=== PATIENT | female | born 1950 | race African-American/Black ===

== ENCOUNTER → 2016-10-12 | Day surgery (SDC) | payer OTHER ==
[~2016-10-12] MED LIST: ACETAMINOPHEN PO; ACETAMINOPHEN650 M1 PO; ACID CONTROL20 MG PO; ADVAIR 250-501 EAC1 IH; ALBUTEROL20 ml INH; ALEVE220 M1 PO; AMLODIPINE BESYL5 MG PO; ASPIRIN81 M2 PO; ASPIRIN81 MG PO; BAYER ASPIRIN325 M1 PO; CELEXA PO; CLARITIN10 M2 PO; CLARITIN10 M3 DOB; CLARITIN10 M3 PO; CLOPIDOGREL75 MG PO; CRESTOR PO; DIFLUCAN100 MG PO; GLUCOPHAGE500 M1 PO; HUMULIN 70/30 PE3 ML; HYDROCHLOROTHIA25 MG PO; HYDROCODON-ACE1 EAC7 PO; IMDUR-ER30 M1 PO; INVOKANA100 MG PO; LANTUS100 U/ML SQ; LEVEMIR SUBQ; LEVEMIR100 UNITS/ SQ; LIPITOR40 MG PO; LISINOPRIL-HCTZ1 T15 PO; LISINOPRIL20 MG PO; LOPRESSOR PO; MEDROL DOSEPAK4 MG PO; METFORMIN HCL500 M1 PO; METFORMIN HCL500 M2 PO; METFORMIN PO; METOPROLOL TAR25 MG PO; NITROGLYCERIN0.3 MG SL; NITROGLYGERIN0.4 MG SL; NORVASC PO; NOVOLOG100 U/ML SQ; NOVOLOG100 U/ML SUBQ; OMEPRAZOLE40 M1 PO; PEPCID AC20 M2 PO; PLAVIX PO; PROAIR RESPICL90 MCG INH; RANITIDINE HCL150 M1 PO; RANITIDINE HCL300 M1 PO; RANITIDINE HCL300 MG PO; SERTRALINE HCL100 MG PO; SIMVASTATIN40 MG PO; SIMVASTATIN80 MG PO; SYMBICORT INH; TOPROL XL PO; TOPROL XL50 MG PO; TRIGLIDE160 M1 PO; VICTOZA0.6 MG/0.1 SUBQ; ZANTAC PO; ZESTORETIC 20/21 TAB PO; ZOCOR PO; ZOLOFT50 MG PO
--- NOTE | ~2016-10-12 | OR ---
Unit #: [id number] #: [id number] Patient: ARTHUR BLACK [id number] [address] [place], [place] [address] [id number] O MR#: [id number] NAME: ARTHUR BLACK ROOM: Date of Procedure: 10/12/2016 Admission Date: 10/12/2016 Surgeon: Adrian Schofield M.D. : 1950 Attending Physician: Adrian Schofield M.D. Primary Care Physician: Laila Bauer M.D. OPERATIVE REPORT PREOPERATIVE DIAGNOSES 1. Reflux symptoms resistant to medications. 2. Change in bowel habits. POSTOPERATIVE DIAGNOSES 1. Reflux symptoms resistant to medications. 2. Change in bowel habits. PROCEDURES PERFORMED 1. Esophagogastroduodenoscopy. 2. Biopsy of the antrum for Helicobacter pylori testing. 3. Colonoscopy to cecum; polypectomy with electrocautery snare x2 in cecum, and x1 at 25 cm; polypectomy with cold biopsy forceps of proximal ascending colon, descending colon (65 cm), and sigmoid colon (35 cm). ANESTHESIA Monitored anesthesia care. FINDINGS The patient was found on upper endoscopy to have a medium hiatal hernia and mild distal gastritis. On colonoscopy, the patient was found to have two small cecal polyps. A small polyp in the proximal ascending colon, the descending colon at 65 cm, sigmoid colon 35 and sigmoid colon at 25 cm, and mild internal hemorrhoids. SPECIMENS Sent to Pathology. COMPLICATIONS None apparent. CONDITION The patient tolerated the procedure well. INDICATIONS FOR PROCEDURE The patient is a 66-year-old black female, who presents at this time with reflux symptoms resistant to medications as well as a change in bowel habits with increasing constipation. DESCRIPTION OF PROCEDURE After obtaining informed consent, the patient was brought to the endoscopy suite and after adequate monitored anesthesia care, had the endoscope Unit #: [id number] #: [id number] Patient: ARTHUR BLACK placed through the mouth into the upper esophagus under direct vision. The scope was advanced slowly with the lumen always in view to the level of the second and third portion of the duodenum. The second and third portion of the duodenum were normal as was the duodenal bulb. The pylorus opened normally. There was some mild distal gastritis present and a biopsy was obtained for Helicobacter pylori testing. On retroflexion back to the GE junction, the patient was found to have a medium-sized hiatal hernia. No other abnormalities were found in the proximal third, middle third, or incisura. On pulling back above the GE junction, there was no stenosis, stricture, or neoplasm seen. There was no significant esophagitis. The remaining portion of the esophagus was within normal limits. Laryngeal structures were grossly normal as viewed from above. At this point in time, the colonoscope was placed through the anus and slowly advanced to the level of the cecum without difficulty with the lumen always in view. There were two small polyps present within the apex of the cecum. Other than this, there was no other abnormalities and the ileocecal valve was normal. The two small polyps were excised with electrocautery snare with good hemostasis, retrieved with a mucus trap, and sent to Pathology. In the proximal ascending colon, a small 3 to 4 mm polyp was present. It was excised completely with the cold biopsy forceps with good hemostasis and sent to Pathology. The remaining portion of the ascending colon was normal as was the hepatic flexure, transverse colon, and splenic flexure. At 65 cm, a small polyp was found and it was excised completely with electrocautery snare with good hemostasis. Another was found at 35 cm. No diverticula were seen. At 25 cm, there was a 7 to 8 mm polyp which was excised completely with electrocautery snare with good hemostasis, retrieved with a mucus trap, and sent to Pathology. The remaining portion of the rectosigmoid and rectum were all within normal limits. On retroflexing in the rectum to the anorectal junction, the patient was found to have some mild internal hemorrhoids. The scope was removed without difficulty. The patient went from the endoscopy suite to recovery area in stable condition. RECOMMENDATIONS Gastroesophageal reflux sheet given. High-fiber diet, lots of liquids, tucks or wipes p.r.n. Call Wednesday for pathology. Prescription for omeprazole given. Dictated by... Arline Gil/emy TD: 10/12/2016 13:32 JOB #: [id number] Charles Kemp M.D. [facility] Unit #: [id number] #: [id number] Patient: ARTHUR BLACK OPERATIVE REPORT Page 1 of 1 X Adrian Schofield MD PROCEDURE OPERATIVE NOTE
== END | disposition home or self-care (01) ==
LOC: COPS 10:12
DX: D12.0 Benign neoplasm of cecum (principal); D12.2 Benign neoplasm of ascending colon; D12.4 Benign neoplasm of descending colon; D12.6 Benign neoplasm of colon, unspecified; K21.9 Gastro-esophageal reflux disease without esophagitis; K44.9 Diaphragmatic hernia without obstruction or gangrene; K29.70 Gastritis, unspecified, without bleeding; K64.8 Other hemorrhoids; J45.909 Unspecified asthma, uncomplicated; J44.9 Chronic obstructive pulmonary disease, unspecified; M19.90 Unspecified osteoarthritis, unspecified site; I10 Essential (primary) hypertension; E11.9 Type 2 diabetes mellitus without complications; Z98.890 Other specified postprocedural states; Z95.5 Presence of coronary angioplasty implant and graft; I25.10 Atherosclerotic heart disease of native coronary artery without angina pectoris; Z87.01 Personal history of pneumonia (recurrent); Z91.040 Latex allergy status; Z91.013 Allergy to seafood; Z79.4 Long term (current) use of insulin; Z79.899 Other long term (current) drug therapy; Z95.1 Presence of aortocoronary bypass graft; Z90.49 Acquired absence of other specified parts of digestive tract; Z90.710 Acquired absence of both cervix and uterus; Z98.41 Cataract extraction status, right eye; Z98.42 Cataract extraction status, left eye
CPT/HCPCS: 82947; 87077; 88305; J2250

== ENCOUNTER 2016-10-16 21:11 | Observation (INO) | payer OTHER ==
[~2016-10-16] VITALS: Ht 165.1 cm; Wt 87.0 kg
--- NOTE | ~2016-10-16 | EKG ---
PATIENT: ARTHUR BLACK UNIT #: [id number] Ventricular Rate: 57 BPM Atrial Rate: 57 BPM P-R Interval: 190 ms QRS Duration: 78 ms Q-T Interval: 422 ms QTC Calculation(Bezet): 410 ms P [place]: 15 degrees Calculated R [place]: -24 degrees Calculated T [place]: 21 degrees Diagnosis Line: Sinus bradycardia Diagnosis Line: Voltage criteria for left ventricular hypertrophy Diagnosis Line: Normal ECG Diagnosis Line: No previous ECGs available Diagnosis Line: Confirmed by RASHAAD YO MD ([id number]) on 10/18/2016 Diagnosis Line: 2:57:25 PM INTERPRETING MD: SRINATH CAAL
--- NOTE | ~2016-10-16 | TH ---
Unit #: [id number] #: [id number] Patient: ARTHUR BLACK [id number] [address] [address] [id number] I MR#: [id number] NAME: ARTHUR BLACK : 1950 SEX: F STUDY DATE/TIME: 10/19/2016 UNIT: [facility] ROOM: 567 STUDY DESCRIPTION: Attending Physician: Jorge A Rooney M.D. Primary Care Physician: Laila Bauer M.D. CARDIOLOGY REPORT EXAM Lexiscan Cardiolite stress test, nuclear portion. PROCEDURE Using technetium 99m labeled Cardiolite, rest and stress SPECT images were obtained. Multiple SPECT images were obtained in various views including horizontal and vertical long axis and short axis views of the left ventricle. Images were obtained by gated SPECT method. The patient was administered 10.51 mCi of Cardiolite at rest. The patient was administered 29.7 mCi of Cardiolite after Lexiscan infusion was completed. On the stress images, there is a small area of mild decreased isotope activity in the lateral wall of the left ventricle. The rest images showed normal perfusion. Comparing rest and stress images, an extremely small area of mild stress-induced ischemia involving the inferolateral wall of the left ventricle cannot be ruled out. The left ventricular ejection fraction is calculated to be 64%. There is no focal wall motion abnormality seen. CONCLUSION 1. An extremely small area of possible stress-induced ischemia involving the inferolateral wall of the left ventricle cannot be ruled out. 2. The left ventricular ejection fraction is calculated to be 64%. 3. There is no focal wall motion abnormality seen. 4. Technically limited study due to patient's body habitus. Clinical correlation is requested. Dictated by... Arline Santos TD: 10/19/2016 14:44 JOB #: [id number] Unit #: [id number] #: [id number] Patient: ARTHUR BLACK CARDIOLOGY REPORT Page 1 of 1 X Kia Frank MD <ELECTRONICALLY SIGNED> 11/26/16 1524 CARDIOLOGY REPORT
--- NOTE | ~2016-10-16 | CR72 ---
[facility] A Service of [facility] & [facility] RADIOLOGY TEXT RESULTS PATIENT: ARTHUR BLACK LOCATION: [facility] 567-01 : [birth year] UNIT #: [id number] AGE: [address]: Jorge A Rooney MD SEX: F ORDER DR: [id number] [facility] [address] [place], [place] [address] [id number] I MR#: [id number] Acc #: [id number] NAME: ARTHUR BLACK : 1950 SEX: F STUDY DATE/TIME: 10/16/2016 23:30 UNIT: [facility] ROOM: [facility] STUDY DESCRIPTION: CR Chest Single View Portable Attending Physician: Jorge A Rooney M.D. Ordering Physician: Masoud Mcclure M.D. Primary Care Physician: Laila Bauer M.D. MEDICAL IMAGING REPORT This report is preliminary unless electronic signature is present EXAM Portable chest 10/16/16 at 23:30 INDICATIONS Left side chest pain with weakness that started today. History of leukemia. FINDINGS AP portable chest compared with 09/19/2015. Cardiomegaly stable status post CABG. Bilateral mid lung scarring is stable. Lungs otherwise are clear except for granulomatous calcifications. No pneumothorax. IMPRESSION Stable cardiomegaly with some mild scarring in both lungs. No acute findings in the chest. Dictated by... Masoud Garcia Jr., M.D. THIS IS AN ELECTRONICALLY VERIFIED REPORT Masoud Garcia Jr., M.D. at 10/18/2016 4:55 AM ANISHA/delmar TD: 10/17/2016 21:07 JOB #: [id number] MEDICAL IMAGING REPORT Page 1 of 1 COPY
--- NOTE | ~2016-10-16 | EKG ---
PATIENT: ARTHUR BLACK UNIT #: [id number] Ventricular Rate: 73 BPM Atrial Rate: 73 BPM P-R Interval: 212 ms QRS Duration: 78 ms Q-T Interval: 382 ms QTC Calculation(Bezet): 420 ms P [place]: 35 degrees Calculated R [place]: -34 degrees Calculated T [place]: 49 degrees Diagnosis Line: Sinus rhythm with 1st degree A-V block Diagnosis Line: Possible Left atrial enlargement Diagnosis Line: Left axis deviation Diagnosis Line: Left ventricular hypertrophy Diagnosis Line: Abnormal ECG Diagnosis Line: When compared with ECG of 10-JUL-2015 12:23, Diagnosis Line: MA interval has increased Diagnosis Line: Confirmed by RASHAAD YO MD ([id number]) on 10/18/2016 Diagnosis Line: 3:02:17 PM INTERPRETING MD: SRINATH CAAL
--- NOTE | ~2016-10-16 | ST ---
Unit #: [id number] #: [id number] Patient: ARTHUR BLACK [id number] [address] [place], [place] [address] [id number] I MR#: [id number] NAME: ARTHUR BLACK : 1950 SEX: F STUDY DATE/TIME: UNIT: [facility] ROOM: 567 STUDY DESCRIPTION: Stress Test Attending Physician: Jorge A Rooney M.D. Primary Care Physician: Laila Bauer M.D. CARDIOLOGY REPORT EXAM Lexiscan Cardiolite Stress Test FINDINGS Baseline EKG shows normal sinus rhythm with a rage of 68 beats per minute with left axis deviation. There is poor R wave progression. Lexiscan was injected immediately followed by Cardiolite. The patient had no complaints of chest pain, palpitations or dizziness. Did complain of nausea and vomited x1. EKG during Lexiscan showed no ST-T wave abnormalities. Was noted for frequent premature atrial complexes and isolated premature ventricular complex. Her maximum blood pressure response was 201/119 mmHg. At the end of recovery, blood pressure 185/92 mmHg. Please correlate these results with nuclear images. Dictated by... Dannie Sanderson A.P.R.N. for Arline Mota/dao TD: 10/17/2016 14:39 JOB #: [id number] CARDIOLOGY REPORT Page 1 of 1 X Dannie Sanderson APRN CARDIOLOGY REPORT
--- NOTE | ~2016-10-16 | HP ---
Unit #: [id number] #: [id number] Patient: ARTHUR BLACK [id number] [facility]. [place], [place] [address] [id number] I MR#: [id number] NAME: ARTHUR BLACK ROOM: 567 Age: 66 Sex: F Admission Date: 10/17/2016 : 1950 Attending Physician: Jorge A Rooney M.D. Primary Care Physician: Laila Bauer M.D. HISTORY AND PHYSICAL HISTORY OF PRESENT ILLNESS This is a 66-year-old -[place] female who is known to Dr. Frank that has a history of coronary artery disease which she underwent coronary artery bypass graft in 2000. She had PCI and stent to an unknown vessel in 2002. She had a cardiac catheterization at this facility by Dr. Rooney in July of 2015, where she was found to have 100% stenosis to the vein graft to the circumflex artery. MARROQUIN to the LAD was patent. The vein graft to the right coronary artery had 40% stenosis that was at the aortic anastomosis site. The body of the vein graft had 30% stenosis. According to the notes from the cath report, no intervention should be done on the vein graft to the right coronary artery because it arises from one of the self-expanding graft markers which have had complications during angioplasty causing occasional graft perforation. She was continued on medical therapy. Risk factors for ischemia heart disease include hypertension, hyperlipidemia, diabetes and a remote history of nicotine abuse. The patient comes to the emergency room with a complaint of chest pain. At 4 o'clock yesterday, she was sitting watching TV and developed left anterior chest pain around the inframammary region that radiated to her left neck and shoulder. She had some shortness of breath but no nausea or diaphoresis. At 7 p.m., she had occurrence of chest pain. She says chest pain is made worse with deep inspiration and some movement. She came to the emergency room where she was found to have no enzyme elevation or electrocardiogram changes to suggest acute event. She was treated with Toradol and Flexeril. She denies fever or chills. No cough, paroxysmal nocturnal dyspnea or orthopnea. PAST MEDICAL HISTORY 1. Coronary artery bypass graft x4 in 2000 at [facility]. 2. PCI and stent to unknown vessel in 2002. 3. Cardiac catheterization on 07/10/[address] Rooney at [facility] that reveals left main with 40% to 50% stenosis. LAD normal. [place] to the LAD normal. Circumflex marginal with 50% mid vessel stenosis. Circumflex nondominant artery with 50% stenosis mid segment. Vein graft to the marginal branch of the circumflex shows stent at its aortic anastomosis and 100% occlusion of this vein graft. Right coronary artery dominant vessel with mid vessel stenosis 75% to 80%. Distal right coronary artery with multiple areas of plaque producing 40% to 50% cross-sectional area reduction. Vein graft to the right coronary artery was 40% stenosis at the aortic anastomosis. The body of the vein graft has 30% stenosis. PDA branch is normal. 4. 2D echocardiogram 01/09/2014 shows ejection fraction of 55% with mild Unit #: [id number] #: [id number] Patient: ARTHUR BLACK mitral regurgitation. Aortic valvular leaflets sclerotic without stenosis. 5. Hypertension. 6. Hyperlipidemia. 7. Diabetes mellitus type 2. 8. Asthma. 9. Depression. 10. Former smoker. 11. CLL. PAST SURGICAL HISTORY 1. Cholecystectomy. 2. Hysterectomy. 3. Coronary bypass graft x4. 4. Left knee arthroscopy. 5. Left shoulder arthroscopy. 6. Left foot surgery. 7. Bilateral bunionectomy. 8. Cataract extraction. SOCIAL HISTORY The patient quit smoking in 2000. She says she is recently active with limitation because of chronic back pain. No illicit drug or alcohol use. FAMILY HISTORY Mother from a myocardial infarction in her 70s. Has a sister who from myocardial infarction. ALLERGIES Latex and shellfish. HOME MEDICATIONS 1. Nitroglycerin 0.4 mg sublingual p.r.n. 2. Acetaminophen 650 mg q.4 hours p.r.n. 3. Norvasc 5 mg daily. 4. Zantac 150 mg b.i.d. 5. Lisinopril 20 mg b.i.d. 6. Glucophage 1000 mg b.i.d. 7. Invokana 100 mg daily. 8. Lipitor 40 mg q. h.s. 9. Aspirin 325 mg daily. 10. Imdur 30 mg daily. 11. Victoza 1.8 mg sublingual daily. 12. Toprol XL 12.5 mg daily. 13. Omeprazole 40 mg daily. REVIEW OF SYSTEMS CONSTITUTIONAL: Negative for fever or chills. Has no weight gain or weight loss. HEENT: No headache, hearing or visual changes or difficulty with swallowing. Negative for dizziness. CARDIOVASCULAR: Has chest pain as described in the HPI. Has occasional palpitations. No paroxysmal nocturnal dyspnea or orthopnea. Denies syncope or near syncope. RESPIRATORY: Has dyspnea that accompanies chest pain. No cough or hemoptysis. GASTROINTESTINAL: No abdominal pain, nausea or vomiting. No constipation or melena. Unit #: [id number] #: [id number] Patient: ARTHUR BLACK EXTREMITIES: Negative for lower extremity edema. PHYSICAL EXAMINATION VITAL SIGNS: Blood pressure 156/85, heart rate 76, temperature 98.8, BMI 31. GENERAL: This is an obese, 61-year-old -[place] female who is in no acute distress. NEUROLOGICAL: She is awake, alert and oriented. There are no focal weaknesses. NECK: Trachea is midline. No thyromegaly or lymphadenopathy. No jugular venous distention. HEART: S1, S2 heart sounds are normal. No murmurs, rubs or clicks. Regular rate and rhythm. LUNGS: Clear without rales, rhonchi or wheezes. ABDOMEN: Soft, nontender with bowel sounds present. EXTREMITIES: Without leg edema. SKIN: Warm and dry. DIAGNOSTIC STUDIES LABORATORY: Glucose 87, BUN 15, creatinine 1.1, sodium 142, potassium 3.8. CK total 44, troponin less than 0.05 x2 and less than 0.05. BUN 65, cholesterol 139, triglycerides 142, LDL 87, HDL 27, white count 20.3, hemoglobin 11.9, hematocrit 36.8, platelets count 226. CARDIOVASCULAR: Electrocardiogram shows sinus bradycardia, rate of 55 beats per minute with left axis deviation and poor R wave progression. IMAGING: Chest x-ray shows no active disease. IMPRESSION 1. Chest pain, atypical for significant ischemic heart disease. 2. Leukocytosis, questionable etiology. 3. History of coronary artery disease with three vessel coronary bypass graft and occluded vein graft to the obtuse marginal. 4. Hypertension. 5. Hyperlipidemia. 6. Diabetes mellitus type 2. 7. Obesity. 8. CLL. PLAN 1. The patient has been ruled out for an acute myocardial infarction. She has no electrocardiogram changes or troponin elevation to suggest an acute event. Proceed with Cardiolite scan today. 2. Will optimize the patient's cardiac medications with increase in carvedilol to 12.5 mg b.i.d. 3. If Cardiolite scan is normal, the patient will be discharged home today. 4. The patient underwent Lexiscan Cardiolite stress test. Preliminary results show no ischemia. The patient will be discharge home today to follow up with Dr. Frank in three months. Follow up with the primary care physician in two to three weeks. 5. Prescription will be provided for nitroglycerin 0.4 mg sublingual q.5 minutes x3 p.r.n. for chest pain. Carvedilol has been increased to b.i.d. dosing. No other changes in her medication regimen. Unit #: [id number] #: [id number] Patient: ARTHUR BLACK Dictated by Dannie Sanderson A.P.R.N. for Arline Mota/dao TD: 10/17/2016 15:32 JOB #: [id number] HISTORY AND PHYSICAL Page 1 of 1 X Dannie Sanderson APRN X HISTORY AND PHYSICAL
[~2016-10-16 21:11] MED LIST changes: -OMEPRAZOLE40 M1 PO
[2016-10-16 22:41] LABS: POC - CKMB <1.0 ng/mL (0.0-7.9); POC - TROPONIN <0.05 ng/mL (<=0.05)
[2016-10-16 23:30] LABS: BASOPHIL# 0.1 X10e3 (0-0.3); BASOPHIL% 0.3 % (0-2.5); DIFF IND YES; EOSINOPHIL# 0.2 X10e3 (0-0.7); EOSINOPHIL% 1.2 % (0.0-7.0); HEMATOCRIT 36.8 % (35.0-45.0); HEMOGLOBIN 11.9 gm/dL (12.0-16.0); LYMPHOCYTE# 13.4 X10e3 (1.0-3.5); LYMPHOCYTE% 66.1 % (17.0-45.0); MEAN CELL VOLUME 92.6 FL (83-96); MEAN CORPUSCULAR HEMOGLOBIN 29.9 PG (28-34); MEAN CORPUSCULAR HGB CONC 32.3 g/dL (30-36); MEAN PLATELET VOLUME 10.3 FL (6.5-11.5); MONOCYTE# 0.8 X10e3 (0-1.0); MONOCYTE% 3.8 % (3.0-12.0); NEUTROPHIL# 5.8 X10e3 (1.5-7.1); NEUTROPHIL% 28.6 % (40-75); PLATELET COUNT 226 X10e3 (140-420); RED BLOOD COUNT 3.98 X10e (3.90-5.30); RED CELL DISTRIBUTION WIDTH 15.5 % (11.0-15.5); WHITE BLOOD COUNT 20.3 X10e3 (4.0-10.5)
[2016-10-16 23:44] LABS: ANISOCYTOSIS SL; PLATELET ESTIMATE NORMAL (NORMAL)
[2016-10-16 23:45] LABS: PROTHROMBIN TIME (PATIENT) 10.5 SECONDS (10.0-11.7)
[2016-10-16 23:54] LABS: ALBUMIN SERUM 4.2 g/dL (3.5-5.0); BILIRUBIN, DIRECT 0.1 mg/dL (0.0-0.2); BILIRUBIN,INDIRECT 0.6 mg/dL (0.0-0.9); BILIRUBIN,TOTAL 0.7 mg/dL (0.2-2.0); BUN/CREATININE RATIO 13.63; CALCIUM SERUM 9.5 mg/dL (8.4-10.2); CREATININE SERUM 1.1 mg/dL (0.6-1.4); GLOM FILT RATE Estimated 60.6 mL/min (>60); POTASSIUM 3.8 mmol/L (3.5-5.1); PROTEIN TOTAL SERUM 7.3 g/dL (6.0-8.3)
[2016-10-17 00:26] LABS: POC - CKMB <1.0 ng/mL (0.0-7.9); POC - TROPONIN <0.05 ng/mL (<=0.05)
[2016-10-17] MEDS ORDERED: TOPROL XL PO (02:17)
[2016-10-17] MEDS ORDERED: OMEPRAZOLE40 M1 PO (02:20)
[2016-10-17 08:14] LABS: CK TOTAL 44 IU/L (26-140)
[2016-10-17 08:41] LABS: CHOLESTEROL 139 mg/dL (0-200); HDL CHOLESTEROL 24 mg/dL (35-95); LDL CHOLESTEROL 87 mg/dL (-130); LDL/HDL RATIO 4 RATIO (0-4); TRIGLYCERIDES 142 mg/dL (10-160)
== END 2016-10-17 16:00 | disposition home or self-care (01) ==
LOC: CED 21:11 → C5C 10-17 00:25 → CEDOF 10-17 00:25 → CED 10-17 00:30 → C5C 10-17 02:00 → CEDOF 10-17 02:00 → C5C 10-17 16:00
PROVIDERS: Emergency Medicine; Internal Medicine Cardiovascular Disease
DX: R07.89 Other chest pain (principal); I25.10 Atherosclerotic heart disease of native coronary artery without angina pectoris; I10 Essential (primary) hypertension; E78.5 Hyperlipidemia, unspecified; E11.9 Type 2 diabetes mellitus without complications; C91.10 Chronic lymphocytic leukemia of B-cell type not having achieved remission; E66.9 Obesity, unspecified; Z68.32 Body mass index [BMI] 32.0-32.9, adult; Z87.891 Personal history of nicotine dependence; Z91.013 Allergy to seafood; Z91.040 Latex allergy status; Z79.82 Long term (current) use of aspirin; Z79.899 Other long term (current) drug therapy; Z90.49 Acquired absence of other specified parts of digestive tract; Z90.710 Acquired absence of both cervix and uterus; Z95.1 Presence of aortocoronary bypass graft; Z95.5 Presence of coronary angioplasty implant and graft
CPT/HCPCS: 36415; 71010; 78452; 80048; 80061; 80076; 82550; 82553; 82947; 83880; 84484; 85025; 85610; 85730; 93005; 93017; 96372; 96374; 99285; A9500; G0378; J1650; J1885; J2785